=== PATIENT | female | born 1980 | race American Indian/Alaskan Native ===

== ENCOUNTER 2016-09-22 21:26 | Emergency (ER) | payer MEDICARE ==
[2016-09-22 21:27] VITALS: BMI 39.6
[2016-09-23] MEDS ORDERED: Sodium Chloride 0.9% 1,000 ML ONE ×2 (00:13→02:06)
[2016-09-23 00:14] LABS: EOS # 0.1 K/uL (0.0-0.7); MEAN PLATELET VOLUME 9.6 fL (7.2-11.7)
[2016-09-23 00:14] LABS: RBC URINE 416 /hpf (0-3); URINE BILIRUBIN NEGATIVE (NEGATIVE); URINE BLOOD 3+ (NEGATIVE); URINE COLOR Yellow (YELLOW); URINE GLUCOSE (UA) 3+ mg/dL (Normal); URINE KETONE NEGATIVE (NEGATIVE); URINE LEUKOCYTE ESTERASE TRACE Leu/uL (Negative); URINE PROTEIN NEGATIVE (NEGATIVE); URINE UROBILINOGEN NORMAL mg/dL (0.2-1.0); WBC URINE 4 /hpf (0-5)
[2016-09-23 00:18] LABS: BASO # 0.1 K/uL (0.0-0.2); BASO % 1.3 % (0.0-2.0); EOS % 1.6 % (0.0-4.0); HEMATOCRIT 41.6 % (34.0-47.0); LYMPH # 2.7 K/uL (1.0-4.3); LYMPH % 51.4 % (20.0-40.0); MEAN CELL VOLUME 84.2 fL (81.0-99.0); MEAN CORPUSCULAR HEMOGLOBIN 27.8 pg (27.0-31.0); MEAN CORPUSCULAR HGB CONC 33.1 g/dL (33.0-37.0); MONO # 0.4 K/uL (0.0-0.8); MONO % 7.1 % (0.0-10.0); NRBC % 0.4 % (0.0-2.0); RED CELL DISTRIBUTION WIDTH 13.4 % (11.5-14.5); WHITE BLOOD COUNT 5.2 K/uL (4.8-10.8)
[2016-09-23 00:37] LABS: CHLORIDE 98 mmol/L (98-107); POTASSIUM 4.1 mmol/L (3.6-5.2); SODIUM 134 mmol/L (132-148)
[2016-09-23 00:39] LABS: AST/SGOT 15 U/L (14-36); BILIRUBIN,TOTAL 0.5 mg/dL (0.2-1.3); CARBON DIOXIDE 22 mmol/L (22-30); GFR AFRICAN-AMERICAN > 60
[2016-09-23 00:40] LABS: ALB/GLOB RATIO 0.9 (1.0-2.1); ALKALINE PHOSPHATASE 133 U/L (38-126); ALT/SGPT 20 U/L (9-52); BLOOD UREA NITROGEN 8 mg/dL (7-17); CALCIUM 8.3 mg/dl (8.6-10.4); GLUCOSE,RANDOM 343 mg/dL (65-105); TOTAL PROTEIN 7.4 g/dL (6.3-8.3)
[2016-09-23 00:41] LABS: ALCOHOL SERUM < 10 mg/dl (0-10)
[2016-09-23] MEDS ORDERED: Sodium Chloride 0.9% 1,000 ML IV ONE ×2 (02:01)
[2016-09-23 02:10] VITALS: O2SAT 98
--- NOTE | 2016-09-23 04:00 | C.PDOC ---
History Of Present Illness Pt states that she has not been taking her psych or diabetes meds. She c/o hearing voices. Time Seen by Provider: 09/22/16 23:46 Chief Complaint (Nursing): Psychiatric Evaluation History Per: Patient Onset/Duration Of Symptoms: Days Current Symptoms Are (Timing): Still Present Suicide/Self Injury Attempted (Context): None Modifying Factor(s): None Severity: Moderate Associated Symptoms: Other (Auditory hallucinations). denies: Suicidal Thoughts , Suicidal Plan Additional History Per: Prior Records Past Medical History Reviewed: Historical Data, Nursing Documentation, Vital Signs Vital Signs: Last Vital Signs Temp 98 F 09/23/16 05:52 Pulse 83 09/23/16 05:52 Resp 19 09/23/16 05:52 BP 128/79 09/23/16 05:52 Pulse Ox 98 09/23/16 05:52 - Medical History PMH: Anxiety, Diabetes, Schizophrenia - [facility] Procedures DRAINAGE OF BACK SUBCU/FASCIA, OPEN APPROACH (01/25/15) HOME MANAGEMENT TREATMENT (01/28/15) INTRODUCTION OF SERUM/TOX/VACCINE INTO MUSCLE, PERC APPROACH (01/25/15) THERAPEUTIC EXERCISE TREATMENT OF MUSCULOSK WHOLE (01/28/15) Family History: States: Unknown Family Hx - Social History Hx Alcohol Use: No Hx Substance Use: No - Immunization History Hx Tetanus Toxoid Vaccination: No Hx Influenza Vaccination: No Hx Pneumococcal Vaccination: No Review Of Systems Except As Marked, All Systems Reviewed And Found Negative. Constitutional: Negative for: Fever, Weakness Cardiovascular: Negative for: Chest Pain Respiratory: Negative for: Shortness of Breath Gastrointestinal: Negative for: Vomiting, Abdominal Pain Musculoskeletal: Negative for: Neck Pain Skin: Negative for: Rash Neurological: Negative for: Weakness, Seizures Psych: Positive for: Anxiety, Psychosis Physical Exam - Physical Exam Appears: Non-toxic, No Acute Distress Skin: Normal Color, Warm, Dry, No Rash Head: Atraumatic, Normacephalic Eye(s): bilateral: Normal Inspection, PERRL, EOMI Oral Mucosa: Moist Neck: Normal ROM, Supple Cardiovascular: Rhythm Regular Respiratory: Normal Breath Sounds, No Accessory Muscle Use Gastrointestinal/Abdominal: Soft, No Tenderness Back: No CVA Tenderness Extremity: Normal ROM, No Pedal Edema, No Calf Tenderness Neurological/Psych: Oriented x3, Normal Motor, Normal Sensation Gait: Steady ED Course And Treatment - Laboratory Results Result Diagrams: 09/23/16 00:12 09/23/16 00:12 Interpretation Of Abnormal: Mild hyperglycemia, otherwise unremarkable. Some blood in urine sample due to pt being currently on menstrual period. Urine POC: Negative O2 Sat by Pulse Oximetry: 98 Pulse Ox Interpretation: Normal - Radiology CXR: Interpreted by Me, Viewed By Me CXR Interpretation: Yes: No Acute Disease, Other (Limited due to body habitus) Progress Note: Pt is medically stable for psychiatric admission. Glucose improved after IV fluids and Metformin. Down to 278. Pt will be transferred to [facility] for psychiatric admission. Reassessment Condition: Improved Progress - Interventions Interventions:: Observation, Intravenous fluid - Medications Administered Oral: Other (Metformin) - Data Reviewed Data Reviewed: Lab, Diagnostic imaging, Old records - Patient Status Patient status: Mostly improved Disposition Counseled Patient/Family Regarding: Studies Performed, Diagnosis - Disposition Disposition: Trans to Other Acute Care Hosp Disposition Time: 06:44 Condition: STABLE - Clinical Impression Clinical Impression: Schizophrenia, Uncontrolled diabetes mellitus
[2016-09-23 07:01] VITALS: BP 148/99; PULSE 88; RESP 20; TEMP 98.2
--- NOTE | 2016-09-23 15:16 | RAD ---
HISTORY: Psych clearance COMPARISON: No prior. FINDINGS: LUNGS: Examination limited due to patient body habitus. No pulmonary infiltrate. PLEURA: No significant pleural effusion identified, no pneumothorax apparent. CARDIOVASCULAR: Normal. OSSEOUS STRUCTURES: No significant abnormalities. VISUALIZED UPPER ABDOMEN: Normal. OTHER FINDINGS: None. IMPRESSION: No active disease.
== END 2016-09-23 07:43 | disposition short-term general hospital (02) ==
LOC: C.ER 21:26
DX: F20.9 Schizophrenia, unspecified (principal); E11.9 Type 2 diabetes mellitus without complications
CPT/HCPCS: 71010; 80053; 81001; 82948; 84703; 85025; 96360; 96361; 99285; G0480; J7040

== ENCOUNTER 2017-11-21 11:04 | Emergency (ER) | payer MEDICARE ==
[2017-11-21 11:04] VITALS: BMI 42.9
[2017-11-21 11:11] VITALS: RESP 20
[2017-11-21] MEDS ORDERED: Sodium Chloride 0.9% 1,000 ML IV ONE ×2 (11:33→12:31)
[2017-11-21] MEDS ORDERED: Lidocaine 2% MPF (5 ml) Inj ONE (11:34)
[2017-11-21] MEDS ORDERED: Piperacillin/Tazobact 3.375 gm 100 ML IV STA (11:36)
[2017-11-21] MEDS ORDERED: (Novolin R) Insulin Human Regular 100 units/ml vial IV ONE ×2 (11:38→14:06)
[2017-11-21] MEDS ORDERED: Piperacillin/Tazobact 3.375 gm 100 ML IVPB ONE (12:00)
[2017-11-21] MEDS ORDERED: Sodium Chloride 0.9% 1,000 ML ONE (12:00)
[2017-11-21] MEDS ORDERED: (Novolin R) Insulin Human Regular 100 units/ml vial ONE ×2 (12:07→14:26)
[2017-11-21 12:10] LABS: BASO % 0.4 % (0.0-2.0); EOS # 0.1 K/uL (0.0-0.7); HEMOGLOBIN 13.1 g/dL (11.0-16.0); LYMPH # 1.5 K/uL (1.0-4.3); LYMPH % 26.5 % (20.0-40.0); MEAN CELL VOLUME 85.4 fL (81.0-99.0); MEAN CORPUSCULAR HEMOGLOBIN 28.7 pg (27.0-31.0); MEAN CORPUSCULAR HGB CONC 33.6 g/dL (33.0-37.0); MEAN PLATELET VOLUME 9.9 fL (7.2-11.7); MONO # 0.5 K/uL (0.0-0.8); MONO % 8.5 % (0.0-10.0); NEUT # 3.5 K/uL (1.8-7.0); NEUT % 63.6 % (50.0-75.0); NRBC % 0.1 % (0.0-2.0); RBC 4.56 Mil/uL (3.80-5.20); RED CELL DISTRIBUTION WIDTH 13.4 % (11.5-14.5); WHITE BLOOD COUNT 5.5 K/uL (4.8-10.8)
[2017-11-21 12:46] LABS: ALB/GLOB RATIO 1.2 (1.0-2.1); ALBUMIN 3.5 g/dL (3.5-5.0); ALT/SGPT 25 U/L (9-52); AST/SGOT 12 U/L (14-36); BLOOD UREA NITROGEN 7 mg/dL (7-17); GFR NON-AFRICAN AMERICAN > 60
--- NOTE | 2017-11-21 13:16 | C.PDOC ---
History Of Present Illness 37 y/o female, w/PMhx of schizophrenia and diabetes, presents to the ER complaining of swelling and discharge from left hip which has been present for the past 5 days. Patient states that she had a similar episode a few years ago. Patient reports that she has not taken her chronic medications since she moved to [place] 5 years ago. Denies having fever, abdominal pain, chest pain, change in sensation, and chills. (-) SI (-) HI Time Seen by Provider: 11/21/17 11:11 Chief Complaint (Nursing): Abnormal Skin Integrity History Per: Patient History/Exam Limitations: no limitations Onset/Duration Of Symptoms: Days Current Symptoms Are (Timing): Still Present Past Medical History Reviewed: Historical Data, Nursing Documentation, Vital Signs Vital Signs: Last Vital Signs Temp 98.9 F 11/21/17 16:09 Pulse 95 H 11/21/17 16:09 Resp 20 11/21/17 16:09 BP 149/96 H 11/21/17 16:09 Pulse Ox 99 11/21/17 16:09 - Medical History PMH: Anxiety, Diabetes, Schizophrenia ([id number]) Denies: HIV, Chronic Kidney Disease Surgical History: No Surg Hx - [facility] Procedures DRAINAGE OF BACK SUBCU/FASCIA, OPEN APPROACH (01/25/15) GROUP PSYCHOTHERAPY (09/23/16) HOME MANAGEMENT TREATMENT (01/28/15) INTRODUCTION OF SERUM/TOX/VACCINE INTO MUSCLE, PERC APPROACH (01/25/15) THERAPEUTIC EXERCISE TREATMENT OF MUSCULOSK WHOLE (01/28/15) Family History: States: No Known Family Hx - Social History Hx Alcohol Use: No Hx Substance Use: No - Immunization History Hx Tetanus Toxoid Vaccination: No Hx Influenza Vaccination: No Hx Pneumococcal Vaccination: No Review Of Systems Except As Marked, All Systems Reviewed And Found Negative. Constitutional: Negative for: Fever, Chills Skin: Positive for: Other (swelling and discharge to left hip) Physical Exam - Physical Exam Appears: Non-toxic, No Acute Distress, Other (obese) Skin: Warm, Dry, Other (left hip: 5 cm area of erythema with central drainage point) Head: Atraumatic, Normacephalic Eye(s): bilateral: Normal Inspection, EOMI Nose: Normal Oral Mucosa: Moist Neck: Supple Chest: Symmetrical Cardiovascular: Rhythm Regular Respiratory: Normal Breath Sounds Gastrointestinal/Abdominal: Soft, No Tenderness Extremity: Normal ROM Neurological/Psych: Oriented x3, Normal Speech ED Course And Treatment - Laboratory Results Result Diagrams: 11/21/17 12:02 11/21/17 12:03 O2 Sat by Pulse Oximetry: 97 (RA) Pulse Ox Interpretation: Normal Progress Note: Pt treated with Zosyn IV, Insulin IV, and IV Fluids. I&D performed. Pt tolerated well. Pt was offered further evaluationg for psychiatric h/o. PT notes she will f/u psychiatrist out pt. A&O x 3. Denies SI or HI. LAbs evlauated, pt remains afebirle. WBC WNL. No DKA. Discussed importance of DM monitoring and strict outpt follow up . Pt verbalizing understanding. Instructed wound check in 2 days. Case discussed with Dr Stone who evaluated work up and agreed upon plan and discharge. - Incision & Drainage Of Abscess Anesthesia: Lidocaine 2% Prep Used: Sterile Water, Betadine Procedure: Incised W/Scalpel Blade#: (11), Drained Pus, Irrigated Cavity W/ Saline, Probed To Break Up Loculations, Packed W/Gauze, Cultures Obtained And Sent To Lab Disposition - Disposition Referrals: Alma Banda MD [Staff Provider] - [facility] [Outside] Disposition: HOME/ ROUTINE Disposition Time: 14:39 Condition: STABLE Additional Instructions: Follow up with your doctor and psychiatrist in 1-2 days. Return to ER for wound check in 2 days. Prescriptions: Cephalexin [cephalexin] 500 mg PO BID #14 cap metFORMIN [glucOPHAGE] 500 mg PO BID #30 tab Sulfamethoxazole/Trimethoprim [Bactrim DS 800 mg-160 mg] 1 tab PO BID #14 tab Instructions: Abscess Incision and Drainage (DC) Forms: [employer] (Mosotho) - Clinical Impression Clinical Impression: Uncontrolled diabetes mellitus, Abscess - PA / SHIRT LINE OPERATOR / Resident Statement MD/DO has reviewed & agrees with the documentation as recorded. - Scribe Statement The provider has reviewed the documentation as recorded by the Jasmin Celestin Provider Attestation All medical record entries made by the Jasmin were at my direction and personally dictated by me. I have reviewed the chart and agree that the record accurately reflects my personal performance of the history, physical exam, medical decision making, and the department course for this patient. I have also personally directed, reviewed, and agree with the discharge instructions and disposition.
[2017-11-21 16:10] VITALS: BP 149/96; PULSE 95; TEMP 98.9
[2017-11-21 17:50] VITALS: O2SAT 97
== END 2017-11-21 16:10 | disposition home or self-care (01) ==
LOC: C.ER 11:04
DX: E11.65 Type 2 diabetes mellitus with hyperglycemia (principal); L02.416 Cutaneous abscess of left lower limb
CPT/HCPCS: 10060; 80053; 82009; 82948; 85025; 87070; 96365; 96375; 96376; 99285; J2543; J7030

== ENCOUNTER 2017-11-25 12:05 | Emergency (ER) | payer MEDICARE ==
[2017-11-25 12:05] VITALS: BMI 42.9
[2017-11-25 12:22] VITALS: BP 138/88; PULSE 109; RESP 18; TEMP 98.3; O2SAT 99
--- NOTE | 2017-11-25 12:32 | C.PDOC ---
History Of Present Illness 37 y/o female with PMH DM presents to ED for evaluation of wound check to the left hip. Patient was seen at ED on 11/21/17 for abscess to left hip. Patient was instructed to come to ED in 2 days for change of dressing. Patient was not compliant with medication prescribed and changing of dressing. Denies fever, change in sensation, trauma or any complaints at this time. Time Seen by Provider: 11/25/17 12:15 Chief Complaint (Nursing): Wound Check History Per: Patient History/Exam Limitations: no limitations Onset/Duration Of Symptoms: Days Ago Current Symptoms Are (Timing): Still Present Past Medical History Reviewed: Historical Data, Nursing Documentation, Vital Signs Vital Signs: Last Vital Signs Temp 98.3 F 11/25/17 12:14 Pulse 109 H 11/25/17 12:14 Resp 18 11/25/17 12:14 BP 138/88 11/25/17 12:14 Pulse Ox 99 11/25/17 12:49 - Medical History PMH: Anxiety, Diabetes, Schizophrenia ([id number]) Surgical History: No Surg Hx - [facility] Procedures DRAINAGE OF BACK SUBCU/FASCIA, OPEN APPROACH (01/25/15) GROUP PSYCHOTHERAPY (09/23/16) HOME MANAGEMENT TREATMENT (01/28/15) INTRODUCTION OF SERUM/TOX/VACCINE INTO MUSCLE, PERC APPROACH (01/25/15) THERAPEUTIC EXERCISE TREATMENT OF MUSCULOSK WHOLE (01/28/15) Family History: States: No Known Family Hx - Social History Hx Alcohol Use: No Hx Substance Use: No - Immunization History Hx Tetanus Toxoid Vaccination: No Hx Influenza Vaccination: No Hx Pneumococcal Vaccination: No Review Of Systems Constitutional: Negative for: Fever, Chills Musculoskeletal: Negative for: Leg Pain Skin: Positive for: Other (wound to left hip). Negative for: Rash Physical Exam - Physical Exam Appears: Non-toxic, No Acute Distress Skin: Warm, Dry, No Rash, Other (3 cm area of erythema with packing in place, erythema did not extend past the pen outline) Head: Atraumatic, Normacephalic Eye(s): bilateral: Normal Inspection, EOMI Nose: Normal Oral Mucosa: Moist Neck: Normal ROM, Supple Chest: Symmetrical Respiratory: No Accessory Muscle Use Extremity: Normal ROM, Capillary Refill (<2 seconds), No Deformity Neurological/Psych: Oriented x3, Normal Motor, Normal Sensation ED Course And Treatment O2 Sat by Pulse Oximetry: 99 (RA) Pulse Ox Interpretation: Normal Progress Note: Pt states she will fill her RX directly after discharge. Discussed importance of strict follow up and med compliance. Case discussed with Dr Limon, agreed upon plan and discharge. Disposition - Disposition Disposition: HOME/ ROUTINE Disposition Time: 12:46 Condition: STABLE Additional Instructions: Wound check in 2 day with your primary medical doctor or ER. Take medications as prescribed. Return to the emergency department at any time if symptoms persist or worsen. Prescriptions: Cephalexin [cephalexin] 500 mg PO BID #14 cap metFORMIN [glucOPHAGE] 500 mg PO BID #30 tab Sulfamethoxazole/Trimethoprim [Bactrim DS 800 mg-160 mg] 1 tab PO BID #14 tab Instructions: Abscess Incision and Drainage (DC) Forms: [employer] (Cuban) - Clinical Impression Clinical Impression: Wound check, abscess - PA / SUPERVISOR TRANSFERRING AND BOXING / Resident Statement MD/DO has reviewed & agrees with the documentation as recorded. - Scribe Statement The provider has reviewed the documentation as recorded by the Sincereibagusto Bush All medical record entries made by the Jasmin were at my direction and personally dictated by me. I have reviewed the chart and agree that the record accurately reflects my personal performance of the history, physical exam, medical decision making, and the department course for this patient. I have also personally directed, reviewed, and agree with the discharge instructions and disposition.
== END 2017-11-25 13:04 | disposition home or self-care (01) ==
LOC: C.ER 12:05
DX: Z48.00 Encounter for change or removal of nonsurgical wound dressing (principal); L02.416 Cutaneous abscess of left lower limb